=== PATIENT | female | born 1965 | race Caucasian/White ===

== ENCOUNTER 2016-10-06 19:19 | Emergency (ER) | payer OTHER ==
[2016-10-06 20:13] VITALS: BP 135/79
[2016-10-06] MEDS ORDERED: Naproxen TAB* 250 MG PO ONE (20:26)
--- NOTE | 2016-10-06 20:39 | UC ---
Hand/Wrist HPI - HPI Summary HPI Summary: Pain in base of R thumb with digit stuck in bent position since this morning; was able to force it straight and now feels a lump at the volar base of thumb. Pain into hand and wrist. - History Of Current Complaint Chief Complaint: UCUpperExtremity Stated Complaint: THUMB & WRIST PAIN Time Seen by Provider: 10/06/16 20:20 Hx Obtained From: Patient Hx Last Menstrual Period: 10/04/15 ?: No Onset/Duration: Sudden Onset, Lasting Hours Severity Initially: Moderate Severity Currently: Mild Character Of Pain: Aching, Stiffness Aggravating Factor(s): Movement Alleviating: Nothing Associated Signs And Symptoms: Positive: Negative - Allergies/Home Medications Allergies/Adverse Reactions: Allergies Allergy/AdvReac Type Severity Reaction Status Date / Time Nitroglycerin Allergy Unknown See Comment Verified 11/28/15 12:48 Liraglutide [From Victoza] Allergy See Comment Verified 10/06/16 20:04 Phenol [From Victoza] Allergy See Comment Verified 10/06/16 20:04 Propylene Glycol Allergy See Comment Verified 10/06/16 20:04 [From Victoza] PMH/Surg Hx/FS Hx/Imm Hx Endocrine History Of: Reports: Diabetes - type 2 Denies: Thyroid Disease Cardiovascular History Of: Reports: Cardiac Disorders - MITRAL VALVE REPAIRED, Hypertension - Pulmonary HTN Denies: Congestive Heart Failure Respiratory History Of: Reports: Asthma, Pneumonia, Pulmonary Embolism Denies: COPD GI/ History Of: Reports: Gastrointestinal Bleed, Kidney Stones, Renal Disease - PRIOR HX OF KIDNEY STONES Denies: Ulcer Neurological History Of: Reports: Migraine Psychological History Of: Reports: Depression - Surgical History Surgical History: Yes Surgery Procedure, Year, and Place: 2009 Mitral Valve Repair. April 2009 Appendectomy. Collapsed lung - coma 16 days, tracheotomy. TUBAL - Family History Known Family History: Positive: Hypertension, Diabetes - Social History Lives: With Family Alcohol Use: None Substance Use Type: None Smoking Status (MU): Former Smoker When Did the Patient Quit Smoking/Using Tobacco: 8 YRS - Immunization History Most Recent Influenza Vaccination: FALL 2015 Most Recent Tetanus Shot: sep 2012 Most Recent Pneumonia Vaccination: 2008 Review of Systems Constitutional: Negative Skin: Negative Eyes: Negative ENT: Negative Respiratory: Negative Cardiovascular: Negative Gastrointestinal: Negative Genitourinary: Negative Motor: Negative Neurovascular: Negative Musculoskeletal: Arthralgia Neurological: Negative Psychological: Negative All Other Systems Reviewed And Are Negative: Yes Physical Exam Triage Information Reviewed: Yes Appearance: Pain Distress - holding painful hand with other hand, Obese Vital Signs: Initial Vital Signs Temp 99.3 F 10/06/16 20:06 Pulse 87 10/06/16 20:06 Resp 18 10/06/16 20:06 BP 135/79 10/06/16 20:06 Pulse Ox 96 10/06/16 20:06 Vital Signs Reviewed: Yes Eye Exam: Normal Eyes: Positive: Conjunctiva Clear ENT Exam: Normal ENT: Positive: Normal ENT inspection, Hearing grossly normal, Pharynx normal, TMs normal Dental Exam: Normal Neck exam: Normal Neck: Positive: Supple, Nontender, No Lymphadenopathy Respiratory Exam: Normal Respiratory: Positive: Chest non-tender, Lungs clear, Normal breath sounds, No respiratory distress, No accessory muscle use Cardiovascular Exam: Normal Cardiovascular: Positive: RRR, No Murmur Musculoskeletal: Positive: Strength Limited @ - R pincer grasp, ROM Limited @ - R thumb, pt unwilling to bend. Palpable lump at base of volar thumb. Finkelstien maneuver negative Neurological Exam: Normal Neurological: Positive: Alert Psychological Exam: Normal Skin Exam: Normal Hand/Wrist Course/Dx - Differential Dx/Diagnosis Provider Diagnoses: R 1st finger trigger finger Discharge - Discharge Plan Condition: Stable Disposition: HOME Prescriptions: Naproxen Sodium 500 mg PO BID #20 tab Patient Education Materials: Trigger Finger (ED) Referrals: Arturo Baker MD [Primary Care Provider] - Additional Instructions: Wear the splint and use the naproxen until your symptoms improve. If you have persistent or recurrent symptoms, please see Dr. Baker for follow-up and to discuss seeing an orthopedist.
== END 2016-10-06 21:00 | disposition home or self-care (01) ==
LOC: UCEAST 19:19
DX: M65.311 Trigger thumb, right thumb (principal); Z88.8 Allergy status to other drugs, medicaments and biological substances; Z87.891 Personal history of nicotine dependence
CPT/HCPCS: 99213; A9270-GY; G0463

== ENCOUNTER 2017-12-30 20:45 | Emergency (ER) | payer OTHER ==
[2017-12-30] MEDS ORDERED: Al Hydrox/Mg Hydrox/Simet LIQ* 30 ML UDC PO ONE (21:12)
[2017-12-30] MEDS ORDERED: Lidocaine 2% VISCOUS* 15 ML UDC PO ONE (21:12)
[2017-12-30] MEDS ORDERED: Albuterol/Ipratropium NEB.SOL* Albuterol 2.5 MG/Ipratropium 0.5 MG 3 ML INH ONE (21:13)
[2017-12-30] MEDS ORDERED: Dexamethasone IV* 4 MG/ML 1 ML (4 MG) IV SLOW PU ONE (21:14)
[2017-12-30 21:30] LABS: Hematocrit 38 % (35-47); Hemoglobin 12.8 g/dl (12.0-16.0); Mean Corpuscular HGB Conc 34 g/dl (31-36); Mean Corpuscular Hemoglobin 29 pg (27-31); Mean Corpuscular Volume 86 fL (80-97); Mean Platelet Volume 8.7 um3 (7.4-10.4); Platelet Count 241 10^3/ul (150-450); Red Blood Count 4.41 10^6/ul (4.0-5.4); Red Cell Distribution Width 14 % (10.5-15); White Blood Count 11.4 10^3/ul (3.5-10.8)
[2017-12-30 21:40] LABS: EGFR Non-African American 93.2 (>60)
[2017-12-30 22:56] VITALS: BP 127/54
--- NOTE | 2018-01-10 14:48 | ED ---
Janna Neville Elizabeth, scribed for Tanner Salazar MD on 12/30/17 at 2109 . Shortness of Breath - HPI Summary HPI Summary: This patient is a 52 year old F presenting to [facility] with a chief complaint of shortness of breath that began at 20:00 tonight. Symptoms aggravated by nothing. Symptoms alleviated by nothing. Patient reports nasal congestion, sore throat, hoarse voice that began last night. Patient notes that it felt like her throat was closing in. Patient use oxygen and CPAP at home, and previously had a hole in her heart repaired. She notes take mucinex and her inhaler earlier with no improvement to her symptoms. - History of Current Complaint Chief Complaint: EDShortnessOfBreath Time Seen by Provider: 12/30/17 21:00 Hx Obtained From: Patient, Family/Anesthesiology Crna Onset/Duration: Lasting Hours, Still Present Current Severity: Mild Associated Signs & Symptoms: Nasal Congestion - Allergy/Home Medications Allergies/Adverse Reactions: Allergies Allergy/AdvReac Type Severity Reaction Status Date / Time liraglutide [From Victoza] Allergy Unknown Verified 12/30/17 21:33 Reaction Details nitroglycerin Allergy Unknown Verified 12/30/17 21:32 Reaction Details polyethylene glycol 3350 Allergy Unknown Verified 12/30/17 21:34 [From Miralax] Reaction Details Home Medications: Home Medications Naproxen Sodium [Naproxen Sodium 500 MG TAB] 500 mg PO BID PRN 12/30/17 [ History Confirmed 12/30/17] PMH/Surg Hx/FS Hx/Imm Hx Endocrine/Hematology History: Reports: Hx Diabetes - type 2 Denies: Hx Systemic Lupus Erythematosus, Hx Thyroid Disease Cardiovascular History: Reports: Hx Congenital Heart Disease, Hx Hypertension - Pulmonary HTN Denies: Hx Congestive Heart Failure Respiratory History: Reports: Hx Asthma, Hx Pneumonia, Hx Pulmonary Embolism, Other Respiratory Problems/Disorders - SPOT ON RIGHT LUNG PER PT Denies: Hx Chronic Obstructive Pulmonary Disease (COPD) GI History: Reports: Hx Gastrointestinal Bleed Denies: Hx Ulcer History: Reports: Hx Kidney Stones, Hx Renal Disease - PRIOR HX OF KIDNEY STONES, Other Problems/Disorders - overactive bladder Musculoskeletal History: Reports: Hx Back Problems Denies: Hx Rheumatoid Arthritis Sensory History: Reports: Hx Vision Problem Opthamlomology History: Reports: Hx Vision Problem Neurological History: Reports: Hx Developmental Delay, Hx Headaches, Hx Migraine Psychiatric History: Reports: Hx Depression Denies: Hx Substance Abuse - Cancer History Hx Chemotherapy: No - Surgical History Surgery Procedure, Year, and Place: 2009 Mitral Valve Repair. April 2009 Appendectomy. Collapsed lung - coma 16 days, tracheotomy. TUBAL Hx Anesthesia Reactions: No Infectious Disease History: No Infectious Disease History: Denies: Hx Clostridium Difficile, Hx Hepatitis, Hx Human Immunodeficiency Virus (HIV), Hx of Known/Suspected MRSA, Hx Shingles, Hx Tuberculosis, Hx Known/ Suspected VRE, Hx Known/Suspected VRSA, History Other Infectious Disease, Traveled Outside the [place] in Last 30 Days - Family History Known Family History: Positive: Hypertension, Diabetes - Social History Alcohol Use: None Substance Use Type: Reports: None Smoking Status (MU): Former Smoker Review of Systems Negative: Fever, Chills Negative: Erythema ENT: Other - nasal congestion, hoarse voice. Positive: Sore Throat Negative: Chest Pain Positive: Shortness Of Breath Negative: Abdominal Pain, Vomiting, Nausea Negative: dysuria, hematuria Negative: Myalgia, Edema Negative: Rash Neurological: Other - NEGATIVE DIZZINESS All Other Systems Reviewed And Are Negative: Yes Physical Exam - Summary Physical Exam Summary: Constitutional: Well-developed, Well-nourished, Alert. (-) Distressed Skin: Warm, Dry HENT: Normocephalic; Atraumatic. Voice mildly hoarse. Eyes: Conjunctiva normal Neck: Musculoskeletal ROM normal neck. (-) JVD, (-) Stridor, (-) Tracheal deviation Cardio: Rhythm regular, rate normal, Heart sounds normal; Intact distal pulses; The pedal pulses are 2+ and symmetric. Radial pulses are 2+ and symmetric. (-) Murmur Pulmonary/Chest wall: Effort normal. (-) Respiratory distress, (-) Wheezes, (-) Rales, (-) Stridor Abd: Soft, (-) Tenderness, (-) Distension, (-) Guarding, (-) Rebound Musculoskeletal: (-) Edema Lymph: (-) Cervical adenopathy Neuro: Alert, Oriented x3 Psych: Mood and affect Normal Triage Information Reviewed: Yes Vital Signs On Initial Exam: Initial Vitals Temp Pulse Resp BP Pulse Ox 98.3 F 87 20 128/75 97 12/30/17 20:52 12/30/17 20:52 12/30/17 20:52 12/30/17 20:52 12/30/17 20:52 Vital Signs Reviewed: Yes Diagnostics - Vital Signs Vital Signs Temp Pulse Resp BP Pulse Ox 12/30/17 20:52 98.3 F 87 20 128/75 97 - Laboratory Result Diagrams: 12/30/17 21:07 12/30/17 21:07 Lab Statement: Any lab studies that have been ordered have been reviewed, and results considered in the medical decision making process. - EKG 21:26 Cardiac Rate: NL - at 83 BPM EKG Rhythm: Sinus Rhythm EKG Interpretation: no delta, no STEMI Re-Evaluation - Re-Evaluation first re-eval Re-Evaluation Time: 21:12 Change: Improved Comment: Patient expectorated a large green sputum Second re-eval Change: Improved Comment: Patient reports feeling better. Course/Dx - Course Course Of Treatment: This patient is a 52 year old F presenting to [facility] with a chief complaint of shortness of breath that began at 20:00 tonight. Symptoms aggravated by nothing. Symptoms alleviated by nothing. Patient reports nasal congestion, sore throat, hoarse voice that began last night. Patient notes that it felt like her throat was closing in. Patient use oxygen and CPAP at home, and previously had a hole in her heart repaired. She notes take mucinex and her inhaler earlier with no improvement to her symptoms. Physical Exam reveals mildly hoarse voice. An EKG reveals NSR at 83 BPM, no delta, no STEMI. Test results with no significant abnormalities. In the ED course the patient was given Maalox Plus, Albuterol/Ipratropium, IV Dexamethasone, and lidocaine. Upon second re-evaluation, patient reported feeling much better. Diagnosis is upper respiratory infection and mucus plug. Patient will be discharged with prescription for albuterol and doxycycline and follow up from primary care physician in 2-3 days. The patient is agreeable with this plan. - Diagnoses Provider Diagnoses: Upper respiratory infection, Mucus plugging of bronchi Discharge - Sign-Out/Discharge Documenting (check all that apply): Discharge - Discharge Plan Condition: Stable Disposition: HOME Prescriptions: Albuterol 2.5MG/3ML (0.083%)* [Ventolin 2.5 MG/3 ML NEB.NALDO*] 2.5 mg INH Q6H PRN #40 neb.[email or web address] PRN Reason: Cough DOXYcycline CAP(*) [DOXYcycline 100MG CAP(*)] 100 mg PO BID #14 cap Patient Education Materials: Upper Respiratory Infection (ED) Referrals: Arturo Baker MD [Primary Care Provider] - 2 Days (Follow up with primary care provider in 2-3 days.) Additional Instructions: Return to emergency department with changing or worsening symptoms. Follow up with primary care provider in 2-3 days. The documentation as recorded by the Janna roberson Elizabeth accurately reflects the service I personally performed and the decisions made by , Tanner Salazar MD.
== END 2017-12-30 22:56 | disposition home or self-care (01) ==
LOC: ED 20:45
DX: J02.9 Acute pharyngitis, unspecified (principal); Z87.891 Personal history of nicotine dependence; J06.9 Acute upper respiratory infection, unspecified; R09.81 Nasal congestion
CPT/HCPCS: 36415; 80053; 84484; 85027; 93005; 94640; 96374; 99283; A9270-GY; J1100

== ENCOUNTER 2018-09-18 14:51 | Observation (INO) | payer OTHER ==
[2018-09-18] MEDS ORDERED: NS 0.9% 1000 ML** 1,000 ML IV ONE ×2 (15:57→17:25)
[2018-09-18] MEDS ORDERED: Ketorolac INJ* 30 MG/ML 1 ML VIAL IV PUSH ONE (15:59)
[2018-09-18] MEDS ORDERED: Ondansetron INJ* 2 MG/ML VIAL IV ONE (16:00)
--- NOTE | 2018-09-18 16:14 | ED ---
Abdominal Pain/Female - HPI Summary HPI Summary: This pt is a 53 y/o female presenting to [facility] c/o abd pain since this morning. Pt states she woke up this morning with sharp abd pain. She rates her pain 10/ 10 in severity and it is now diffuse. Her pain is aggravated with going to the bathroom. Denies nausea, vomiting, diarrhea, fever, chills, constipation, chest pain. Denies hx of constipation or bowel obstruction. PMHx: pulmonary hypertension, DM, heart problems, CHF (from heart murmur), kidney stones, appendectomy. Denies cholecystectomy. Pt is on diuretics. 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 Her last heart US was a while ago and she does not know her EF. Allergic to nitroglycerin, Miralax. Not allergic to IV contrast. - History of Current Complaint Chief Complaint: EDAbdPain Stated Complaint: PAIN IN STOMACH, NAUSEOUS Time Seen by Provider: 09/18/18 16:00 Hx Obtained From: Patient Hx Last Menstrual Period: 10/04/15 Onset/Duration: Lasting Hours, Still Present Timing: Hours Severity Currently: Severe Pain Intensity: 9 Pain Scale Used: 0-10 Numeric Location: Diffuse Radiates: No Character: Sharp Aggravating Factor(s): Nothing Alleviating Factor(s): Nothing Associated Signs and Symptoms: Negative: Fever, Chest Pain, Constipation, Nausea , Vomiting, Diarrhea Allergies/Adverse Reactions: Allergies Allergy/AdvReac Type Severity Reaction Status Date / Time liraglutide [From Victoza] Allergy Unknown Verified 09/18/18 14:53 Reaction Details nitroglycerin Allergy Unknown Verified 09/18/18 14:53 Reaction Details polyethylene glycol 3350 Allergy Unknown Verified 09/18/18 14:53 [From Miralax] Reaction Details PMH/Surg Hx/FS Hx/Imm Hx Endocrine/Hematology History: Reports: Hx Diabetes - type 2 Denies: Hx Systemic Lupus Erythematosus, Hx Thyroid Disease Cardiovascular History: Reports: Hx Congenital Heart Disease, Hx Congestive Heart Failure, Hx Hypertension - Pulmonary HTN Respiratory History: Reports: Hx Asthma, Hx Pneumonia, Hx Pulmonary Embolism, Other Respiratory Problems/Disorders - SPOT ON RIGHT LUNG PER PT Denies: Hx Chronic Obstructive Pulmonary Disease (COPD) GI History: Reports: Hx Gastrointestinal Bleed Denies: Hx Ulcer History: Reports: Hx Kidney Stones, Hx Renal Disease - PRIOR HX OF KIDNEY STONES, Other Problems/Disorders - overactive bladder Musculoskeletal History: Reports: Hx Back Problems Denies: Hx Rheumatoid Arthritis Sensory History: Reports: Hx Vision Problem Opthamlomology History: Reports: Hx Vision Problem Neurological History: Reports: Hx Developmental Delay, Hx Headaches, Hx Migraine Psychiatric History: Reports: Hx Depression Denies: Hx Substance Abuse - Cancer History Hx Chemotherapy: No - Surgical History Surgery Procedure, Year, and Place: 2009 Mitral Valve Repair. April 2009 Appendectomy. Collapsed lung - coma 16 days, tracheotomy. TUBAL Hx Anesthesia Reactions: No Infectious Disease History: No Infectious Disease History: Denies: Hx Clostridium Difficile, Hx Hepatitis, Hx Human Immunodeficiency Virus (HIV), Hx of Known/Suspected MRSA, Hx Shingles, Hx Tuberculosis, Hx Known/ Suspected VRE, Hx Known/Suspected VRSA, History Other Infectious Disease, Traveled Outside the [place] in Last 30 Days - Family History Known Family History: Positive: Hypertension, Diabetes - Social History Alcohol Use: None Substance Use Type: Reports: None Smoking Status (MU): Former Smoker Review of Systems Negative: Fever, Chills Negative: Chest Pain Positive: Abdominal Pain. Negative: Vomiting, Diarrhea, Nausea, Other - constipation All Other Systems Reviewed And Are Negative: Yes Physical Exam - Summary Physical Exam Summary: GENERAL: Patient is a well developed and nourished female who is lying comfortable in the stretcher. Patient is not in any acute respiratory distress. HEAD AND FACE: Normocephalic EYES: PERRLA, EOMI x 2. EARS: Hearing grossly intact. MOUTH: Oropharynx within normal limits. NECK: Supple, trachea is midline, no adenopathy, no JVD, no carotid bruit. CHEST: Symmetric, no tenderness at palpation LUNGS: Clear to auscultation bilaterally. No wheezing or crackles. CVS: Regular rate and rhythm, S1 and S2 present, no murmurs or gallops appreciated. ABDOMEN: Soft, diffusely tender to palpation. No rebound or guarding. Bowel sounds are normal. No abdominal abnormal pulsations. EXTREMITIES: Full ROM in all major joints, no edema, no cyanosis or clubbing. NEURO: Alert and oriented x 3. No acute neurological deficits. Speech is normal and follows commands. SKIN: Dry and warm Triage Information Reviewed: Yes Vital Signs On Initial Exam: Initial Vitals Temp Pulse Resp BP Pulse Ox 98.0 F 111 20 145/90 97 09/18/18 14:54 09/18/18 14:54 09/18/18 14:54 09/18/18 14:54 09/18/18 14:54 Vital Signs Reviewed: Yes Diagnostics - Vital Signs Vital Signs Temp Pulse Resp BP Pulse Ox 09/18/18 14:54 98.0 F 111 20 145/90 97 - Laboratory Result Diagrams: 09/18/18 16:10 09/18/18 16:09 Lab Statement: Any lab studies that have been ordered have been reviewed, and results considered in the medical decision making process. Abdominal Pain Fem Course/Dx - Course Course Of Treatment: Pt is a 53 y/o female who presents with abd pain since this morning upon waking up, described as sharp and diffuse. Pt does have significant leukocytosis with WBC count of 18.6, elevated lactic acid of 2.8, CRP of 37. Pt was given prophylactic antibiotics for intraabdominal etiology. CT of abdomen/pelvis was ordered and is pending at this time. Pt will be signed out to Dr. Arriaga at shift change, pending CT and disposition. - Diagnoses Provider Diagnoses: Abdominal pain Discharge - Sign-Out/Discharge Documenting (check all that apply): Sign-Out Patient Signing out patient TO: Lencho Arriaga - CT A/P - Discharge Plan Condition: Stable Referrals: Arturo Baker MD [Primary Care Provider] - - Billing Disposition and Condition Condition: STABLE - Attestation Statements Document Initiated by Keanu: Yes Documenting Scribe: Marci Mcghee Provider For Whom Scribe is Documenting (Include Credential): Scooby Ruiz MD Scribe Attestation: Marci Neville, scribed for Scooby Ruiz MD on 09/18/18 at 1854. Scribe Documentation Reviewed: Yes Provider Attestation: The documentation as recorded by the Marci roberson accurately reflects the service I personally performed and the decisions made by me, Scooby Ruiz MD Status of Scribe Document: Viewed
[2018-09-18 16:26] LABS: ABS Basophils 0.1 10^3/ul (0-0.2); ABS Eosinophils 0 10^3/ul (0-0.6); ABS Lymphocytes 1.2 10^3/ul (1.0-4.8); ABS Monocytes 0.8 10^3/ul (0-0.8); ABS Neutrophils 16.5 10^3/ul (1.5-7.7); ABS Nucleated RBC 0 10^3/ul; Eosinophil % 0.1 %; Hematocrit 43 % (35-47); Hemoglobin 14.3 g/dl (12.0-16.0); Lymphocyte % 6.4 %; Mean Corpuscular HGB Conc 34 g/dl (31-36); Mean Corpuscular Hemoglobin 29 pg (27-31); Mean Corpuscular Volume 86 fL (80-97); Mean Platelet Volume 8.7 fL (7.4-10.4); Nucleated Red Blood Cells % 0; Platelet Count 249 10^3/ul (150-450); Red Blood Count 4.99 10^6/ul (4.00-5.40); Red Cell Distribution Width 13 % (10.5-15); White Blood Count 18.6 10^3/ul (3.5-10.8)
[2018-09-18 16:55] LABS: Albumin 4.6 g/dL (3.2-5.2); Albumin/Globulin Ratio 1.8 (1-3); BUN/Creatinine Ratio 16.7 (8-20); C Reactive Protein 37.07 mg/L (<8.01); Calcium 9.4 mg/dL (8.6-10.3); EGFR African American 127.5 (>60); EGFR Non-African American 105.4 (>60); Globulin 2.5 g/dL (2-4); Potassium 3.9 mmol/L (3.5-5.0); Total Bilirubin 0.6 mg/dL (0.2-1.0); Total Protein 7.1 g/dL (6.4-8.9)
[2018-09-18 17:14] LABS: Urine Appearance Clear; Urine Bacteria 1+ (Absent); Urine Bilirubin Negative (Negative); Urine Blood 1+ (Negative); Urine Color Yellow; Urine Glucose Negative (Negative); Urine Ketones 1+ (Negative); Urine Nitrite Negative (Negative); Urine Protein Negative (Negative); Urine Red Blood Cell 1+(3-5/hpf) (Absent); Urine Specific Gravity 1.023 (1.010-1.030); Urine Squamous Epithelial Cell Present (Absent); Urine Urobilinogen Negative (Negative); Urine White Blood Cell Trace(0-5/hpf) (Absent)
[2018-09-18] MEDS ORDERED: Ciprofloxacin 400MG IVPREMIX(* 400 MG/200 ML BAG IVPB ONE (17:41)
[2018-09-18] MEDS ORDERED: metroNIDAZOLE IV 500 MG/100ML* 500 MG/100 ML BAG IVPB ONE (17:41)
[2018-09-18] MEDS ORDERED: Iodixanol* (CONTRAST) 320 MG/ML 100 ML SDV IV ONE (18:50)
--- NOTE | 2018-09-18 19:54 | ED ---
Progress - Progress Note Progress Note: RECEIVING SIGN-OUT FROM DR. RUIZ AT SHIFT CHANGE PENDING A/P CT. 1952: ED provider at bedside Pt is a 53 y/o F presenting to ED with c/o abd pain onset this AM. - Results/Orders Results/Orders: A/P CT results as read by radiologist: IMPRESSION: 1. Cholelithiasis without change from the comparison study. 2. No acute intra-abdominal findings. ED provider has reviewed this report. Gallbladder U/S results as read by radiologist: IMPRESSION: Gallstones without any sonographic evidence of acute cholecystitis. ED provider has reviewed this report. Re-Evaluation - Re-Evaluation 1 Re-Evaluation Time: 23:21 Change: Unchanged Comment: Discussing U/S results with pt. Pt still having abd pain, still tachy. Course/Dx - Course Course Of Treatment: RECEIVING SIGN-OUT FROM DR. RUIZ AT SHIFT CHANGE PENDING A /P CT. A/P CT shows "1. Cholelithiasis without change from the comparison study. 2. No acute intra-abdominal findings." Gallbladder U/S shows no evidence of acute cholecystitis. Upon re-eval, pt is still having abd pain and tachycardia. Consulted with Dr. Potts, hospitalist, who will admit pt. - Diagnoses Provider Diagnoses: Abdominal pain, Tachycardia, Leukocytosis - Provider Notifications Discussed Care Of Patient With: Ankita Potts - hospitalist Time Discussed With Above Provider: 23:29 Instructed by Provider To: Admit As Inpatient Discharge - Sign-Out/Discharge Documenting (check all that apply): Patient Departure - ADMIT, Receiving Sign- Out Receiving patient FROM: Scooby Ruiz - PENDING CT - Discharge Plan Condition: Stable Disposition: ADMITTED TO [facility] Referrals: Arturo Baker MD [Primary Care Provider] - - Billing Disposition and Condition Condition: STABLE Disposition: Admitted to [facility] - Attestation Statements Document Initiated by Scribe: Yes Documenting Scribe: Diaz Abbott Provider For Whom Scribe is Documenting (Include Credential): Dr. Lencho Arriaga MD Scribe Attestation: Diaz Neville, kirbyibed for Dr. Lencho Arriaga MD on 09/19/18 at 0113. Scribe Documentation Reviewed: Yes Provider Attestation: The documentation as recorded by the kirbyibe, Diaz Abbott accurately reflects the service I personally performed and the decisions made by me, Dr. Lencho Arriaga MD Status of Scribe Document: Viewed
[2018-09-18] MEDS ORDERED: Morphine 4 MG/ML VIAL (1 ml) 4 MG/ML VIAL IV ONE (19:57)
[2018-09-19] MEDS ORDERED: Dextrose 50% Syringe 50 ML* 25 GM/50 ML SYRINGE IV PUSH PRN (00:37)
[2018-09-19] MEDS ORDERED: Ondansetron INJ* 2 MG/ML VIAL IV PRN (00:39)
[2018-09-19] MEDS ORDERED: Al Hydrox/Mg Hydrox/Simet LIQ* 30 ML UDC PO PRN (00:39)
[2018-09-19] MEDS ORDERED: Albuterol/Ipratropium RESP(NF) MDI (Combivent Respimat) INH PRN (00:41)
[2018-09-19] MEDS ORDERED: Albuterol HFA INHALER* 8 gm MDI INH PRN (00:41)
[2018-09-19] MEDS ORDERED: Albuterol 2.5 MG/3 ML NEB.SOL* (0.083%) INH PRN (00:41)
[2018-09-19] MEDS ORDERED: Metoprolol Tartrate TAB* 25 MG PO SCH (01:00)
[2018-09-19] MEDS: Metoprolol Tartrate TAB* 25 MG PO SCH ×2 (01:22→09:29)
[2018-09-19] MEDS: NS 0.9% 1000 ML** 1,000 ML IV SCH ×2 (01:59→19:47)
[2018-09-19] MEDS: Insulin GLARGINE(*) 1 UNITS UNIT SUBCUT SCH ×2 (02:01→21:18)
[2018-09-19] MEDS: traMADol TAB* 50 MG PO PRN ×3 (02:15→19:34)
--- NOTE | 2018-09-19 04:57 | HP ---
CC: Arturo Baker MD * HISTORY AND PHYSICAL: DATE OF ADMISSION: 09/19/18 TIME OF EVALUATION: 29. PRIMARY CARE PHYSICIAN: Arturo Baker MD CHIEF COMPLAINT: Abdominal pain. HISTORY OF PRESENT ILLNESS: This is a 53-year-old female with past medical history of pulmonary hypertension, on oxygen, who presents to the emergency room with acute onset of abdominal pain. The patient states she woke up yesterday morning with abdominal pain in the epigastric region initially, now is diffusely in the entire abdomen. She states she does get loose stools quite often, she thinks ever since she had her appendectomy, she is unable to tolerate certain foods. She had a large steak last night. Shortly afterward she had several episodes of diarrhea, she took Pepto which is not unusual for her and when she woke up, she had this abdominal pain and has had several more episodes of non-bloody diarrhea. She has been nauseated but no vomiting, she has been having chills at home. Her who had the same food last night did not get sick, [facility] The patient had a workup done, there was concern for persistent tachycardia. In the setting of abdominal pain, they recommended admission. She said she has not taken her nighttime medications, which include metoprolol which is why she thinks her heart rate is elevated, she has no chest pain, no shortness of breath. She wears chronic oxygen and a CPAP at night. No recent antibiotic use. Otherwise , review of systems is negative. In the emergency room, the patient had labs, imaging. She was given 2 L of fluids, 4 mg of Zofran, 10 mg of morphine, Cipro , Flagyl, Toradol, and referred to the hospitalist service for further evaluation. PAST MEDICAL HISTORY: 1. History of obstructive sleep apnea, on CPAP. 2. Diabetes, on insulin. 3. History of CHF. 4. Pulmonary hypertension, on 2 L chronically. 5. Hypertension. 6. Emphysema. MEDICATIONS: 1. Metoprolol 37.5 mg p.o. b.i.d. 2. Albuterol inhaler 2 puffs every 4 hours as needed. 3. Spironolactone 40 mg p.o. daily. 4. Oxybutynin 5 mg p.o. b.i.d. 5. Naproxen 500 mg p.o. b.i.d. as needed. 6. Humalog sliding scale a.c. 7. Lasix 80 mg p.o. daily. 8. Aspirin 81 mg daily. 9. Combivent q.4 hours as needed. 10. Albuterol inhaling nebulizer q.6 hours as needed. 11. Lantus 12 units in the evening. 12. Metformin 500 mg p.o. b.i.d. 13. Cialis 2 tabs p.o. daily. ALLERGIES: VICTOZA, NITROGLYCERIN, MIRALAX. FAMILY HISTORY: Parents are alive and healthy. SOCIAL HISTORY: The patient lives at home with her , who is her healthcare proxy. She quit smoking 10 years ago, no alcohol or illicit drug use. She has been independent of her ADLs. Code status is full code. REVIEW OF SYSTEMS: A 14-point review of systems as mentioned in the HPI, otherwise negative. PHYSICAL EXAMINATION GENERAL: No acute distress, resting comfortably. VITAL SIGNS: Temp 98, pulse rate 115, respiratory rate is 20, oxygen saturation is 93% on 2 L, blood pressure 130/77. HEENT: Head: Normocephalic. Pupils equal and reactive, anicteric. Oropharynx : Mucous membranes dry. NECK: Supple. No adenopathy. RESPIRATORY: Diminished breath sounds. No wheezes, rhonchi, or rales. CARDIAC: Regular rate and rhythm. Soft systolic murmur heard throughout. ABDOMEN: Hypoactive bowel sounds, morbidly obese, soft, nondistended. Some diffuse tenderness, no rebound or guarding. EXTREMITIES: Trace pretibial edema. NEUROLOGIC: Alert and oriented x3. No gross focal neurologic deficits. DIAGNOSTIC STUDIES/LAB DATA: White count 18.6, hemoglobin 14.3, hematocrit 43 , platelets 249. Sodium 136, potassium 3.9, chloride 101, bicarb 25, BUN 10, creatinine 0.6, glucose 225. Lactic acid 2.8, repeat 1.4. CRP is 37. Urinalysis shows +1 blood, +1 ketones. Radiographic data: Abdomen and pelvis CT: Cholelithiasis without change from comparison study, no acute intraabdominal findings. Gallbladder ultrasound: Gallstones without sonographic evidence of acute cholecystitis. ASSESSMENT AND PLAN: This is a 53-year-old morbidly obese with past medical history of pulmonary hypertension, presents to the emergency room with acute onset of abdominal pain in the setting of diarrhea and nausea. Abdominal pain. Assessment: It is unclear the etiology of the abdominal pain, could be biliary colic, could be gastroenteritis in the setting of her diarrhea and nausea. She does have an elevated white count but her lactate has normalized with IV fluids. Her abdominal exam is relatively benign but she is morbidly obese, do not think this is Clostridium difficile, she has not been on antibiotics. Plan: We will give her gentle fluids in the setting of her congestive heart failure. We will hold off on further antibiotics at this time since her CAT scan was unremarkable and repeat labs in the morning to reassess. We will also get a stool lactoferrin. CHRONIC MEDICAL PROBLEMS: We will resume her home medications and give her a dose of metoprolol this evening to help with better heart rate control. We will hold her Lasix in the morning. Continue her spironolactone in the morning , we recommend reassessing if she can have her Lasix back or not. FEN. Clear liquid diet, gentle IV fluids. DVT prophylaxis. The patient scores moderate risk, placed on heparin subcu t.i.d. Code status. Full code. PATIENT TIME: Greater than 35 minutes was spent obtaining history and physical , more than half the time spent in direct patient conversation. [id number]/[facility] #: [id number] ITA
[2018-09-19] MEDS: Heparin VIAL(*) 5000 UNITS/ML VIAL (FIVE THOUSAND) SUBCUT SCH ×3 (05:59→21:18)
[2018-09-19 06:51] LABS: ABS Basophils 0 10^3/ul (0-0.2); ABS Eosinophils 0.1 10^3/ul (0-0.6); ABS Lymphocytes 2.8 10^3/ul (1.0-4.8); ABS Monocytes 0.9 10^3/ul (0-0.8); ABS Neutrophils 7.5 10^3/ul (1.5-7.7); ABS Nucleated RBC 0 10^3/ul; Eosinophil % 0.6 %; Hematocrit 37 % (35-47); Hemoglobin 12.4 g/dl (12.0-16.0); Lymphocyte % 24.6 %; Mean Corpuscular HGB Conc 34 g/dl (31-36); Mean Corpuscular Hemoglobin 29 pg (27-31); Mean Corpuscular Volume 86 fL (80-97); Mean Platelet Volume 8.8 fL (7.4-10.4); Nucleated Red Blood Cells % 0.1; Platelet Count 224 10^3/ul (150-450); Red Blood Count 4.32 10^6/ul (4.00-5.40); Red Cell Distribution Width 14 % (10.5-15); White Blood Count 11.2 10^3/ul (3.5-10.8)
[2018-09-19 07:07] LABS: BUN/Creatinine Ratio 20.8 (8-20); Calcium 8.4 mg/dL (8.6-10.3); EGFR Non-African American 136.4 (>60); Potassium 3.7 mmol/L (3.5-5.0)
[2018-09-19] MEDS ORDERED: Insulin LISPRO* 1 UNITS UNIT SUBCUT SCH (07:30)
[2018-09-19] MEDS: Oxybutynin TAB* 5 MG PO SCH ×2 (09:29→21:17)
[2018-09-19] MEDS: Spironolactone TAB* 25 MG PO SCH (09:29)
[2018-09-19] MEDS: Aspirin EC TAB* 81 MG TAB.EC PO SCH (09:30)
[2018-09-19] MEDS: TADALAFIL 20 MG PO SCH ×2 (09:33→16:32)
[2018-09-19] MEDS: Insulin LISPRO* 1 UNITS UNIT SUBCUT SCH ×2 (12:37→16:32)
--- NOTE | 2018-09-19 16:16 | PN ---
Subjective Date of Service: 09/19/18 Interval History: Patient seen and examined, states abdominal pain improved, about 5/10 today and no diarrhea; feels "sore" but better. Denies fevers or chills, no chest pain, no SOB. Appears comfortable. Objective Active Medications: Al Hydrox/Mg Hydrox/Simethicone (Maalox Plus*) 30 ml PO Q6H PRN PRN Reason: INDIGESTION Albuterol (Ventolin 2.5 Mg/3 Ml Neb.Mary*) 2.5 mg INH Q6H PRN PRN Reason: COUGH Albuterol (Ventolin Hfa Inhaler*) 2 puff INH Q4H PRN PRN Reason: SOB/WHEEZING Albuterol/Ipratropium (Combivent Respimat(Nf)) 1 puff INH Q4HR PRN; Protocol PRN Reason: SOB/WHEEZING Aspirin (Aspirin Ec Tab*) 81 mg PO DAILY [facility] Last Admin: 09/19/18 09:30 Dose: 81 mg Dextrose (D50w Syringe 50 Ml*) 12.5 gm IV PUSH .FOR FS < 60 - SS PRN PRN Reason: FS < 60 Heparin Sodium (Porcine) (Heparin Vial(*)) 5,000 units SUBCUT Q8HR [facility] Last Admin: 09/19/18 12:38 Dose: 5,000 units Sodium Chloride (Ns 0.9% 1000 Ml*) 1,000 mls @ 75 mls/hr IV PER RATE [facility] Last Admin: 09/19/18 01:59 Dose: 75 mls/hr Insulin Glargine (Lantus(*)) 12 units SUBCUT BEDTIME [facility] Last Admin: 09/19/18 02:01 Dose: 12 units Insulin Human Lispro (Humalog*) 0 units SUBCUT AC [facility]; Protocol Last Admin: 09/19/18 12:37 Dose: 1 unit Metoprolol Tartrate (Lopressor Tab*) 37.5 mg PO DAILY [facility] Last Admin: 09/19/18 09:29 Dose: 37.5 mg Ondansetron HCl (Zofran Inj*) 4 mg IV Q4H PRN PRN Reason: NAUSEA/VOMITING Oxybutynin Chloride (Ditropan Tab*) 5 mg PO BID [facility] Last Admin: 09/19/18 09:29 Dose: 5 mg Spironolactone (Aldactone Tab*) 37.5 mg PO DAILY [facility] Last Admin: 09/19/18 09:29 Dose: 37.5 mg Tadalafil (Adcirca (Nf)) 40 mg PO DAILY [facility] Last Admin: 09/19/18 09:33 Dose: Not Given Tramadol HCl (Ultram*) 50 mg PO Q8H PRN PRN Reason: PAIN Last Admin: 09/19/18 10:18 Dose: 50 mg Vital Signs - 8 hr 09/19/18 09/19/18 09/19/18 10:18 11:02 14:32 Temperature 98.1 F Pulse Rate 88 Respiratory 16 18 16 Rate Blood Pressure 116/65 (mmHg) O2 Sat by Pulse 92 Oximetry 09/19/18 15:14 Temperature 98.1 F Pulse Rate 88 Respiratory 18 Rate Blood Pressure 127/58 (mmHg) O2 Sat by Pulse 97 Oximetry Oxygen Devices in Use Now: Nasal Cannula Appearance: alert, NAD Eyes: No Scleral Icterus Ears/Nose/Mouth/Throat: Mucous Membranes Moist, - - poor dentition Neck: NL Appearance and Movements; NL JVP, Trachea Midline Respiratory: Symmetrical Chest Expansion and Respiratory Effort, Clear to Auscultation Cardiovascular: NL Sounds; No Murmurs; No JVD, RRR, No Edema Abdominal: - - no distension, obese, mildly tender bilateral lower quads, diffuse in nature Extremities: No Edema, No Clubbing, Cyanosis Skin: No Rash or Ulcers, No Nodules or Sclerosis Neurological: Alert and Oriented x 3, NL Sensation, NL Muscle Strength and Tone Result Diagrams: 09/19/18 06:02 09/19/18 06:06 Diagnostic Imaging: Patient Name: SHELDON RICHARD Medical Record#: [id number] Ordering Physician: Lencho Arriaga MD Acct.#: [id number] : 1965 Age: 53 Sex: F Location: EMERGENCY DEPARTMENT Exam Date: 09/18/181954 ADM Status: REG ER Order Information: US GALL BLADDER Accession Number: [id number] CPT: 85935 EXAM: US Abdomen Limited, Right Upper Quadrant EXAM DATE/TIME: 09/18/2018 9:53 PM CLINICAL HISTORY: 53 years old, female; Pain; Abdominal pain; Additional info: Ruq pain TECHNIQUE: Real-time ultrasound of the abdomen with image documentation. Examination was focused on the right upper quadrant. COMPARISON: A/P W CT ABD/PEL W 09/18/2018 6:32 PM FINDINGS: Liver: Normal. No masses. Gallbladder: Cholelithiasis; measuring up to 2.1 x 1.2 cm. No pericholecystic fluid. No gallbladder wall thickening. Common bile duct: Intrahepatic common bile duct measures 6.4 cm and extrahepatic common bile duct measures 4.9 cm. Pancreas: Visualized pancreas is unremarkable. Right kidney: The right kidney is unremarkable measuring 2.5 cm. IMPRESSION: Gallstones without any sonographic evidence of acute cholecystitis. Assess/Plan/Problems-Billing Assessment: This is a 53 year old female with history of HF, COPD, HTN, DMII, SVEN, admitted for intractable abdominal pain. - Patient Problems (1) Abdominal pain Code(s): R10.9 - UNSPECIFIED ABDOMINAL PAIN SNOMED Code(s): 82642722 Comment: - With leukocytosis and elevated lactic acid, s/p fluid resuscitation - Had similar episode in 2016 with negative work up - No acute sigrid on imaging about, CT negative - Has IBS and lactose intolerance at baseline with chronic intermittent diarrhea - Events seem to be precipitated by heavy meal on New Years - Advance for FLD and monitor stools - Lactoferrin pending, stool culture ordered, viral gastroenteritis is in the differential (2) CHF (congestive heart failure) Code(s): I50.9 - HEART FAILURE, UNSPECIFIED SNOMED Code(s): 87299733 Comment: - Not in exacerbation, continue home meds (3) Emphysema of lung Code(s): J43.9 - EMPHYSEMA, UNSPECIFIED SNOMED Code(s): 13839084 Comment: - Not in exacerbation, continue inhalers and O2 (4) Hypertension Code(s): I10 - ESSENTIAL (PRIMARY) HYPERTENSION SNOMED Code(s): 06806842 Comment: - Stable, continue BB (5) Insulin dependent diabetes mellitus Code(s): E11.9 - TYPE 2 DIABETES MELLITUS WITHOUT COMPLICATIONS; Z79.4 - FDC (CURRENT) USE OF INSULIN SNOMED Code(s): 87994281 Comment: - BG stable, continue lantus with lispro SS coverage as needed, cons carb diet and sugars ACHS (6) SVEN (obstructive sleep apnea) Code(s): G47.33 - OBSTRUCTIVE SLEEP APNEA (ADULT) (PEDIATRIC) SNOMED Code(s): 96603697 Comment: - continue home CPAP (7) Pulmonary hypertension Code(s): I27.2 - OTHER SECONDARY PULMONARY HYPERTENSION * DO NOT USE * SNOMED Code(s): 52709843 Comment: - Stable, continue supplemental O2 and tadalafil (8) DVT prophylaxis Current Visit: No Status: Acute Code(s): DEC8381 - SNOMED Code(s): 898060363 Comment: early ambulation and SCDs Status and Disposition: Inpatient, likely DC home tomorrow if symptoms resolve.
[2018-09-20] MEDS: traMADol TAB* 50 MG PO PRN ×2 (05:25→15:01)
[2018-09-20] MEDS: Heparin VIAL(*) 5000 UNITS/ML VIAL (FIVE THOUSAND) SUBCUT SCH ×2 (05:26→12:05)
[2018-09-20] MEDS: Spironolactone TAB* 25 MG PO SCH (08:32)
[2018-09-20] MEDS: Oxybutynin TAB* 5 MG PO SCH (08:34)
[2018-09-20] MEDS: Metoprolol Tartrate TAB* 25 MG PO SCH (08:34)
[2018-09-20] MEDS: Aspirin EC TAB* 81 MG TAB.EC PO SCH (08:35)
[2018-09-20] MEDS: TADALAFIL 20 MG PO SCH (08:35)
[2018-09-20] MEDS: Insulin LISPRO* 1 UNITS UNIT SUBCUT SCH ×2 (08:35→12:05)
[2018-09-20] MEDS: NS 0.9% 1000 ML** 1,000 ML IV SCH (08:38)
[2018-09-20 13:07] VITALS: BP 135/68
--- NOTE | 2018-09-26 19:59 | DS ---
CC: Dr. Baker * DISCHARGE SUMMARY: DATE OF ADMISSION: 09/19/18 DATE OF DISCHARGE: 09/20/18 PRIMARY CARE PROVIDER: Dr. Arturo Baker. ATTENDING FOR THIS ADMISSION: Dr. Ankita Potts. MY ATTENDING FOR DAY OF DISCHARGE: Dr. Promise Correia.* (DICTATED BY CHAMP OLVERA NP) HOSPITAL COURSE: Please refer to Dr. Potts's admission H and P from 09/19/18, but in short, this is a 53-year-old female with intractable abdominal pain, who presented to the emergency department for evaluation. She was found to have some leukocytosis. She was also having episodes of nonbloody diarrhea and nausea, but no vomiting. The patient felt as if her heart was beating faster than normal and overall feeling of general malaise. The patient was admitted for her abdominal pain. Her CT scan in the ED did not show any acute cholecystitis. She did have some stones in the gallbladder, but again not an acute sigrid. Her CAT scan again otherwise unremarkable. The patient did report history of IBS in the past and she has had issues with dairy and other foods. She also related to me that she had a very large meal on Flinjae , which included steak, which sometimes she has difficulty digesting. In either case, the patient's symptoms rapidly resolved overnight. She received a bowel regimen. Her diarrhea did stop. Her laboratories were trending towards normal. She does have diabetes at baseline. Her sugars were well controlled and by the next morning after having fluids and some bowel meds and bowel rest, we advanced her diet form clears to soft GI diet, which she tolerated without having any further abdominal pain or diarrhea. DISCHARGE DIAGNOSES: 1. Abdominal pain, etiology unclear, viral gastroenteritis versus exacerbation of her irritable bowel syndrome. 2. History of congestive heart failure, not in exacerbation. 3. History of emphysema, on supplemental oxygen, not in exacerbation. 4. History of hypertension. 5. History of diabetes mellitus. 6. History of obstructive sleep apnea, on CPAP. 7. History of pulmonary hypertension, stable. DISCHARGE MEDICATIONS: Home medications include: 1. Metoprolol tartrate 37.5 mg p.o. daily. 2. Albuterol inhaler 2 puffs q.4 hours as needed. 3. Aldactone 40 mg p.o. daily. 4. Ditropan 5 mg p.o. b.i.d. 5. Naproxen sodium 500 mg p.o. b.i.d. p.r.n. 6. Humalog sliding scale. 7. Furosemide 80 mg p.o. daily. 8. Doxycycline 100 mg p.o. b.i.d. 9. Aspirin 81 mg daily. 10. Combivent Respimat 1 aerosolized inhalation q.4 hours as needed. 11. Ventolin 2.5 mg nebulized q.6 hours as needed. 12. Lantus 12 units in the evening. 13. Metformin 500 mg p.o. b.i.d. 14. Tadalafil 2 tabs p.o. daily. New medications: 1. Zofran orally disintegrating tablets 4 mg p.o. q.12 hours as needed for 4 days. 2. Bentyl 10 mg p.o. before meals and p.r.n. for abdominal pain and cramping, also for 4 days. REVIEW OF SYSTEMS: On the day of discharge, the patient denies any fever, fatigue, or chills. No headache, no dizziness. No nausea or vomiting. Mild intermittent crampy abdominal pain, improved. No musculoskeletal pain and no further constitutional complaints. PHYSICAL EXAMINATION: Reveals an older than stated age female. Vital Signs: Blood pressure 135/68, heart rate 80, respiratory rate 18, O2 saturation 93% on 2 L nasal cannula with a temperature of 98.2. HEENT: The patient is atraumatic , normocephalic. PERRLA with nonicteric sclerae. Oral mucosa is moist. Tongue is midline. Dentition is poor. Neck is supple, nontender. No JVD noted. No thyromegaly appreciated. Cardiovascular: S1, S2 present. No murmurs, gallops, or rubs noted. Rate and rhythm are regular. Abdomen is soft , nontender, nondistended, moderately obese. Positive bowel sounds in all 4 quadrants. No organomegaly noted. was deferred. Musculoskeletal: There is no clubbing, no cyanosis, and no edema. She has +2 distal pulses palpable, full range of motion, steady gait. Gross motor and sensation are intact. Neurologic: Grossly intact with no focal deficits. Psychiatric: Cooperative and appropriate. DIAGNOSTIC STUDIES/LAB DATA: WBCs 11.2, down from 18.6 at admission; RBCs 4.32 ; hemoglobin 12.4; hematocrit 37; platelets 224. Sodium 139, potassium 3.7, chloride 107, CO2 of 27, BUN 10, creatinine 0.48, GFR is 136.4, glucose ranging from 118 to 150. Lactic acid at admission was 2.8, repeat lactic was 1.4. Calcium 8.4. Bilirubin 0.60, AST 12, ALT 17, alk phos 75. CRP mildly elevated at 37.7. Total protein 7.1, albumin 4.6, globulin 2.5, lipase 17. Urinalysis showed 1+ blood and ketones and some squamous epithelial cells, 1+ bacteria, but no further findings. Imaging: CAT scan as noted above. DISPOSITION: The patient was discharged to home in stable condition. All questions were answered. The patient stated her understanding of her discharge instructions and followups. DIET: Reinforced dietary changes with the patient. She does already have a dairy intolerance. We also advised her that red meat was also a problem for her. She was interested in nutritional counseling, so we referred her to the [facility] to help manage her nutritional needs, dietary restrictions, diabetic diet. Also, the patient is obese at 282 pounds with a BMI of 53.4. She would certainly benefit from weight loss as well. MEDICATIONS: As noted above. ACTIVITY: Progress as tolerated. FOLLOWUPS: The patient was instructed to follow up with her primary care provider, Dr. Baker and [facility]. TIME SPENT: Thirty five minutes interfacing with the patient and staff regarding discharge plan of care. CHAMP OLVERA NP [id number]/[facility] #: [id number] ITA
== END 2018-09-20 15:10 | disposition home or self-care (01) ==
LOC: ED 14:51 → MED 09-19 00:39
PROVIDERS: ADMIT Pediatrics; ATTEND Internal Medicine
DX: K52.9 Noninfective gastroenteritis and colitis, unspecified (principal); R11.2 Nausea with vomiting, unspecified; K80.20 Calculus of gallbladder without cholecystitis without obstruction; I50.9 Heart failure, unspecified; J43.9 Emphysema, unspecified; I10 Essential (primary) hypertension; E11.9 Type 2 diabetes mellitus without complications; G47.33 Obstructive sleep apnea (adult) (pediatric); I27.0 Primary pulmonary hypertension; R00.0 Tachycardia, unspecified; Z79.4 Long term (current) use of insulin; Z79.82 Long term (current) use of aspirin; D72.829 Elevated white blood cell count, unspecified
CPT/HCPCS: 36415; 74177; 76705; 80048; 80053; 81003; 81015; 83605; 83630; 83690; 85025; 86140; 87045; 87046; 87077; 87086; 87899; 94660; 96361; 96365; 96372; 96375; 96376; 99285; A9270-GY; G0378; J0744; J1644; J1885; J2270; J2405; J3490; Q9967

== ENCOUNTER 2018-10-31 08:49 | Emergency (ER) | payer OTHER ==
[2018-10-31 09:42] VITALS: BP 131/71
--- NOTE | 2018-10-31 11:03 | UC ---
Lower Extremity/Ankle HPI - HPI Summary HPI Summary: 53-year-old female comes in with a chief complaint of right great toe pain and infection. Week ago she had an ingrown toenail she removed part of the toenail and now has pus drainage. Pain is worse with any kind of pressure on the area. She has been putting Neosporin on it. No fevers or chills feels well otherwise. She is a diabetic. - History of Current Complaint Chief Complaint: UCLowerExtremity Stated Complaint: RED SWOLLEN TOE Time Seen by Provider: 10/31/18 10:51 Hx Last Menstrual Period: menapause Pain Intensity: 8 - Allergies/Home Medications Allergies/Adverse Reactions: Allergies Allergy/AdvReac Type Severity Reaction Status Date / Time liraglutide [From Victoza] Allergy Unknown Verified 09/18/18 14:53 Reaction Details nitroglycerin Allergy Unknown Verified 09/18/18 14:53 Reaction Details polyethylene glycol 3350 Allergy Unknown Verified 10/31/18 09:35 [From Miralax] Reaction Details Home Medications: Home Medications Tadalafil [Cialis] 40 mg PO DAILY 10/31/18 [History Confirmed 10/31/18] PMH/Surg Hx/FS Hx/Imm Hx Previously Healthy: Yes Endocrine History: Diabetes, Dyslipidemia Cardiovascular History: Hypertension, Congestive Heart Failure Respiratory History: Asthma - Surgical History Surgical History: Yes Surgery Procedure, Year, and Place: 2009 Mitral Valve Repair. April 2009 Appendectomy. Collapsed lung - coma 16 days, tracheotomy. TUBAL - Family History Known Family History: Positive: Hypertension, Diabetes - Social History Alcohol Use: None Substance Use Type: None Smoking Status (MU): Former Smoker When Did the Patient Quit Smoking/Using Tobacco: 8 YRS - Immunization History Most Recent Influenza Vaccination: FALL 2015 Most Recent Tetanus Shot: sep 2012 Most Recent Pneumonia Vaccination: 2008 Review of Systems All Other Systems Reviewed And Are Negative: Yes Constitutional: Positive: Negative Skin: Positive: Other - SEE HPI ENT: Positive: Negative Respiratory: Positive: Negative Cardiovascular: Positive: Negative Gastrointestinal: Positive: Negative Motor: Positive: Negative Neurovascular: Positive: Negative Musculoskeletal: Positive: Negative Neurological: Positive: Negative Psychological: Positive: Negative Is Patient Immunocompromised?: No Physical Exam Triage Information Reviewed: Yes Appearance: Well-Appearing, No Pain Distress, Well-Nourished Vital Signs: Initial Vital Signs Temp 97.7 F 10/31/18 09:36 Pulse 73 10/31/18 09:36 Resp 18 10/31/18 09:36 BP 131/71 10/31/18 09:36 Pulse Ox 96 10/31/18 09:36 Vital Signs Reviewed: Yes Eye Exam: Normal Eyes: Positive: Conjunctiva Clear Neck exam: Normal Neck: Positive: Supple Respiratory: Positive: No respiratory distress Musculoskeletal Exam: Normal Musculoskeletal: Positive: Strength Intact, ROM Intact Neurological Exam: Normal Neurological: Positive: Alert, Muscle Tone Normal Psychological Exam: Normal Psychological: Positive: Normal Response To Family, Age Appropriate Behavior Skin: Positive: Other - Right great toe has about one fourth of the lateral aspect of the toenail removed. There is some pus drainage. I took a sample of that for culture. There is localized erythema there is no streaking. Toe is full range of motion normal capillary refill. Lower Extremity Course/Dx - Course Course Of Treatment: To start Augmentin and then topical mupirocin. The plan will be to follow up with podiatry. Reevaluate sooner if any spread of infection or worse. - Differential Dx/Diagnosis Provider Diagnosis: Paronychia of great toe, right Discharge - Sign-Out/Discharge Documenting (check all that apply): Patient Departure All imaging exams completed and their final reports reviewed: No Studies - Discharge Plan Condition: Stable Disposition: HOME Prescriptions: Amoxicillin/Clavulanate TAB* [Augmentin TAB 875*] 875 mg PO BID #20 tab Mupirocin 1 applic TOPICAL BID #22 gm Patient Education Materials: Paronychia (ED) Referrals: Arturo Baker MD [Primary Care Provider] - Katelynn Franco DPM [Doctor of Podiatric Medicine] - Additional Instructions: FOLLOW UP WITH YOUR PRIMARY CARE DOCTOR OR PODIATRY. GET RECHECKED FOR ANY WORSENING OF YOUR CONDITION OR QUESTIONS OR CONCERNS. - Billing Disposition and Condition Condition: STABLE Disposition: Home
--- NOTE | 2018-11-02 07:20 | UC ---
- Progress Note Progress Note: Culture from toe: S. Aureus; MRSA negative. On Augmentin, Bactroban. No change in treatment. Kwadwo Harkins MD Course/Dx - Diagnoses Provider Diagnoses: Paronychia of great toe, right Discharge - Sign-Out/Discharge Documenting (check all that apply): Post-Discharge Follow Up All imaging exams completed and their final reports reviewed: No Studies - Discharge Plan Condition: Stable Disposition: HOME Prescriptions: Amoxicillin/Clavulanate TAB* [Augmentin TAB 875*] 875 mg PO BID #20 tab Mupirocin 1 applic TOPICAL BID #22 gm Patient Education Materials: Paronychia (ED) Referrals: Arturo Baker MD [Primary Care Provider] - Katelynn Franco DPM [Doctor of Podiatric Medicine] - Additional Instructions: FOLLOW UP WITH YOUR PRIMARY CARE DOCTOR OR PODIATRY. GET RECHECKED FOR ANY WORSENING OF YOUR CONDITION OR QUESTIONS OR CONCERNS. - Billing Disposition and Condition Condition: STABLE Disposition: Home
--- NOTE | 2018-11-02 15:12 | UC ---
- Progress Note Progress Note: Final culture with resistance to penicillin, but sensitive to sulbactam - therefore I suspect augmentin should treat this. Please call pt and if she is improving - no change. If not improving will switch her to doxycycline. Course/Dx - Diagnoses Provider Diagnoses: Paronychia of great toe, right Discharge - Sign-Out/Discharge Documenting (check all that apply): Post-Discharge Follow Up All imaging exams completed and their final reports reviewed: No Studies - Discharge Plan Condition: Stable Disposition: HOME Prescriptions: Amoxicillin/Clavulanate TAB* [Augmentin TAB 875*] 875 mg PO BID #20 tab Mupirocin 1 applic TOPICAL BID #22 gm Patient Education Materials: Paronychia (ED) Referrals: Arturo Baker MD [Primary Care Provider] - Katelynn Franco DPM [Doctor of Podiatric Medicine] - Additional Instructions: FOLLOW UP WITH YOUR PRIMARY CARE DOCTOR OR PODIATRY. GET RECHECKED FOR ANY WORSENING OF YOUR CONDITION OR QUESTIONS OR CONCERNS. - Billing Disposition and Condition Condition: STABLE Disposition: Home
== END 2018-10-31 11:14 | disposition home or self-care (01) ==
LOC: UCEAST 08:49
DX: L03.031 Cellulitis of right toe (principal); Z87.891 Personal history of nicotine dependence; I11.0 Hypertensive heart disease with heart failure; I50.9 Heart failure, unspecified; J45.909 Unspecified asthma, uncomplicated; E11.9 Type 2 diabetes mellitus without complications; Z88.8 Allergy status to other drugs, medicaments and biological substances
CPT/HCPCS: 87070; 87077; 87186; 87205; 87640; 87641; 99212; G0463

== ENCOUNTER 2019-02-19 18:52 | Emergency (ER) | payer OTHER ==
[2019-02-19] MEDS ORDERED: NS 0.9% 1000 ML** 2,000 ML IV ONE (19:24)
[2019-02-19] MEDS ORDERED: Insulin REGULAR(*) 1 UNITS UNIT IV PUSH ONE ×2 (19:24→21:46)
[2019-02-19 19:34] LABS: Urine Appearance Clear; Urine Bilirubin Negative (Negative); Urine Blood Negative (Negative); Urine Color Straw; Urine Glucose 3+(>=500 mg/dL) (Negative); Urine Ketones 1+ (Negative); Urine Nitrite Negative (Negative); Urine Protein Negative (Negative); Urine Urobilinogen Negative (Negative)
[2019-02-19 19:40] LABS: ABS Eosinophils 0.1 10^3/ul (0-0.6); ABS Lymphocytes 2.9 10^3/ul (1.0-4.8); ABS Monocytes 0.8 10^3/ul (0-0.8); ABS Neutrophils 5.4 10^3/ul (1.5-7.7); Eosinophil % 1.1 %; Hematocrit 44 % (35-47); Hemoglobin 15.1 g/dL (12.0-16.0); Lymphocyte % 31.1 %; Mean Corpuscular HGB Conc 34 g/dL (31-36); Mean Corpuscular Hemoglobin 30 pg (27-31); Mean Corpuscular Volume 86 fL (80-97); Nucleated Red Blood Cells % 0.1; Platelet Count 226 10^3/uL (150-450); Red Blood Count 5.13 10^6 /uL (3.70-4.87); Red Cell Distribution Width 13 % (10.5-15); White Blood Count 9.2 10^3/uL (3.5-10.8)
[2019-02-19 19:50] LABS: Activated Partial Thrombo Time 28.5 seconds (26.0-38.0); INR 0.89 (0.82-1.09)
[2019-02-19 19:57] LABS: Albumin 4.2 g/dL (3.2-5.2); Albumin/Globulin Ratio 1.6 (1-3); BUN/Creatinine Ratio 15.5 (8-20); C Reactive Protein 10.12 mg/L (<8.01); Calcium 10.2 mg/dL (8.6-10.3); EGFR Non-African American 86.8 (>60); Globulin 2.6 g/dL (2-4); Magnesium 1.4 mg/dL (1.9-2.7); Potassium 3.5 mmol/L (3.5-5.0); Total Bilirubin 0.5 mg/dL (0.2-1.0); Total Protein 6.8 g/dL (6.4-8.9)
--- NOTE | 2019-02-19 20:19 | ED ---
HPI Diabetic - HPI Summary HPI Summary: A 53 y/o female presents to [facility] with a chief complaint of high blood glucose since yesterday. The patient reports that yesterday her blood glucose was over 500 then dropped to around 300 but then today it went back up. She complains of blurry vision and cotton mouth. She usually takes Lantus 12 at night and then during the day uses a sliding scale. She has been taking the same dose of insulin for 5-6 years. Her last humalog was at 12:00 today with lunch. She reports that when her blood glucose is over 150 she takes 2 shots for each 50 she is over. She takes Aspirin. - History Of Current Complaint Chief Complaint: EDDiabeticProb Time Seen by Provider: 02/19/19 19:23 Hx Obtained From: Patient, Family/Time Buyer Hx Last Menstrual Period: menapause Onset/Duration: Sudden Onset, Lasting Days, Still Present Timing: Days Severity Initially: Mild Severity Currently: Mild Character: Alert Aggravating: Nothing Alleviating: Nothing Associated Signs & Symptoms: Negative - fever - Allergies/Home Medications Allergies/Adverse Reactions: Allergies Allergy/AdvReac Type Severity Reaction Status Date / Time liraglutide [From Victoza] Allergy Unknown Verified 09/18/18 14:53 Reaction Details nitroglycerin Allergy Unknown Verified 09/18/18 14:53 Reaction Details polyethylene glycol 3350 Allergy Unknown Verified 10/31/18 09:35 [From Miralax] Reaction Details Home Medications: Home Medications raNITIdine HCl [Ranitidine HCl] 150 mg PO BID 02/19/19 [History Confirmed ] PMH/Surg Hx/FS Hx/Imm Hx Endocrine/Hematology History: Reports: Hx Diabetes - type 2 Denies: Hx Systemic Lupus Erythematosus, Hx Thyroid Disease Cardiovascular History: Reports: Hx Congenital Heart Disease, Hx Congestive Heart Failure, Hx Hypertension - Pulmonary HTN Respiratory History: Reports: Hx Asthma, Hx Pneumonia, Hx Pulmonary Embolism, Other Respiratory Problems/Disorders - SPOT ON RIGHT LUNG PER PT, pulmonary HTN , emphysea Denies: Hx Chronic Obstructive Pulmonary Disease (COPD) GI History: Reports: Hx Gastroesophageal Reflux Disease, Hx Gastrointestinal Bleed, Other GI Disorders - Appi Denies: Hx Ulcer History: Reports: Hx Kidney Stones, Hx Renal Disease - PRIOR HX OF KIDNEY STONES, Other Problems/Disorders - overactive bladder Musculoskeletal History: Reports: Hx Arthritis, Hx Back Problems Denies: Hx Rheumatoid Arthritis Sensory History: Reports: Hx Contacts or Glasses, Hx Vision Problem Denies: Hx Hearing Aid Opthamlomology History: Reports: Hx Contacts or Glasses, Hx Vision Problem Neurological History: Reports: Hx Developmental Delay, Hx Headaches, Hx Migraine Psychiatric History: Reports: Hx Depression Denies: Hx Substance Abuse - Cancer History Cancer Type, Location and Year: denies Hx Chemotherapy: No - Surgical History Surgery Procedure, Year, and Place: 2009 Mitral Valve Repair. April 2009 Appendectomy. Collapsed lung - coma 16 days, tracheotomy. TUBAL Hx Anesthesia Reactions: No Infectious Disease History: No Infectious Disease History: Denies: Hx Clostridium Difficile, Hx Hepatitis, Hx Human Immunodeficiency Virus (HIV), Hx of Known/Suspected MRSA, Hx Shingles, Hx Tuberculosis, Hx Known/ Suspected VRE, Hx Known/Suspected VRSA, History Other Infectious Disease, Traveled Outside the [place] in Last 30 Days - Family History Known Family History: Positive: Hypertension, Diabetes - Social History Alcohol Use: None Substance Use Type: Reports: None Smoking Status (MU): Former Smoker Review of Systems Positive: Other - positive: high blood glucose. Negative: Fever Positive: Blurred Vision All Other Systems Reviewed And Are Negative: Yes Physical Exam - Summary Physical Exam Summary: VITAL SIGNS: Reviewed. GENERAL: Patient is a morbidly obese FEMALE who is lying comfortable in the stretcher. Patient is not in any acute respiratory distress. HEAD AND FACE: No signs of trauma. No ecchymosis, hematomas or skull depressions. No sinus tenderness. EYES: PERRLA, EOMI x 2, No injected conjunctiva, no nystagmus. EARS: Hearing grossly intact. Ear canals and tympanic membranes are within normal limits. MOUTH: Oropharynx within normal limits. NECK: Supple, trachea is midline, no adenopathy, no JVD, no carotid bruit, no c- spine tenderness, neck with full ROM CHEST: Symmetric, no tenderness at palpation LUNGS: Clear to auscultation bilaterally. No wheezing or crackles. CVS: Regular rate and rhythm, S1 and S2 present, no murmurs or gallops appreciated. ABDOMEN: Soft, non-tender. No signs of distention. No rebound no guarding, and no masses palpated. Bowel sounds are normal. EXTREMITIES: FROM in all major joints, no edema, no cyanosis or clubbing. NEURO: Alert and oriented x 3. No acute neurological deficits. Speech is normal and follows commands. SKIN: Dry and warm Triage Information Reviewed: Yes Vital Signs On Initial Exam: Initial Vitals Temp Pulse Resp BP Pulse Ox 97.3 F 117 18 140/101 95 02/19/19 18:54 02/19/19 18:54 02/19/19 18:54 02/19/19 18:54 02/19/19 18:54 Vital Signs Reviewed: Yes Diagnostics - Vital Signs Vital Signs Temp Pulse Resp BP Pulse Ox 02/19/19 18:54 97.3 F 117 18 140/101 95 - Laboratory Lab Results: Lab Results 02/19/19 02/19/19 02/19/19 Range/Units 19:19 19:26 19:27 WBC (3.5-10.8) 10^3/uL RBC (3.70-4.87) 10^6 /uL Hgb (12.0-16.0) g/dL Hct (35-47) % MCV (80-97) fL MCH (27-31) pg MCHC (31-36) g/dL RDW (10.5-15) % Plt Count (150-450) 10^3/uL MPV (7.4-10.4) fL Neut % (Auto) % Lymph % (Auto) % [place] % (Auto) % Eos % (Auto) % Baso % (Auto) % Absolute Neuts (auto) (1.5-7.7) 10^3/ul Absolute Lymphs (auto) (1.0-4.8) 10^3/ul Absolute Monos (auto) (0-0.8) 10^3/ul Absolute Eos (auto) (0-0.6) 10^3/ul Absolute Basos (auto) (0-0.2) 10^3/ul Absolute Nucleated RBC 10^3/ul Nucleated RBC % INR (Anticoag Therapy) (0.82-1.09) APTT (26.0-38.0) seconds VBG pH (7.32-7.43) VBG pCO2 (41-51) mmHg VBG pO2 (35-45) mmHg VBG HCO3 (24-28) mmol/L VBG O2 Saturation (70-80) % VBG Base Excess (0.0-4.0) mmol/L Sodium 134 L (135-145) mmol/L Potassium 3.5 (3.5-5.0) mmol/L Chloride 93 L (101-111) mmol/L Carbon Dioxide 28 (22-32) mmol/L Anion Gap 13 H (2-11) mmol/L BUN 11 (6-24) mg/dL Creatinine 0.71 (0.51-0.95) mg/dL Est GFR ( Amer) 105.0 (>60) Est GFR (Non-Af Amer) 86.8 (>60) BUN/Creatinine Ratio 15.5 (8-20) Glucose 604 H* (70-100) mg/dL POC Glucose (mg/dL) > 444 H* (70-100) mg/dL Glucose Meter Confirm 604 H* (70-100) mg/dL Calcium 10.2 (8.6-10.3) mg/dL Magnesium 1.4 L (1.9-2.7) mg/dL Total Bilirubin 0.50 (0.2-1.0) mg/dL AST 19 (13-39) U/L ALT 17 (7-52) U/L Alkaline Phosphatase 108 H (34-104) U/L Troponin I 0.00 (<0.04) ng/mL C-Reactive Protein 10.12 H (<8.01) mg/L Total Protein 6.8 (6.4-8.9) g/dL Albumin 4.2 (3.2-5.2) g/dL Globulin 2.6 (2-4) g/dL Albumin/Globulin Ratio 1.6 (1-3) Urine Color Straw Urine Appearance Clear Urine pH 6.0 (5-9) Ur Specific [place] 1.030 (1.010-1.030) Urine Protein Negative (Negative) Urine Ketones 1+ A (Negative) Urine Blood Negative (Negative) Urine Nitrate Negative (Negative) Urine Bilirubin Negative (Negative) Urine Urobilinogen Negative (Negative) Ur Leukocyte Esterase Negative (Negative) Urine Glucose 3+(>=500 mg/dl) A (Negative) 02/19/19 02/19/19 02/19/19 Range/Units 19:28 19:28 19:28 WBC 9.2 (3.5-10.8) 10^3/uL RBC 5.13 H (3.70-4.87) 10^6 /uL Hgb 15.1 (12.0-16.0) g/dL Hct 44 (35-47) % MCV 86 (80-97) fL MCH 30 (27-31) pg MCHC 34 (31-36) g/dL RDW 13 (10.5-15) % Plt Count 226 (150-450) 10^3/uL MPV 10.0 (7.4-10.4) fL Neut % (Auto) 58.7 % Lymph % (Auto) 31.1 % [place] % (Auto) 8.8 % Eos % (Auto) 1.1 % Baso % (Auto) 0.3 % Absolute Neuts (auto) 5.4 (1.5-7.7) 10^3/ul Absolute Lymphs (auto) 2.9 (1.0-4.8) 10^3/ul Absolute Monos (auto) 0.8 (0-0.8) 10^3/ul Absolute Eos (auto) 0.1 (0-0.6) 10^3/ul Absolute Basos (auto) 0.0 (0-0.2) 10^3/ul Absolute Nucleated RBC 0.0 10^3/ul Nucleated RBC % 0.1 INR (Anticoag Therapy) 0.89 (0.82-1.09) APTT 28.5 (26.0-38.0) seconds VBG pH 7.51 H (7.32-7.43) VBG pCO2 41 (41-51) mmHg VBG pO2 < 38.0 (35-45) mmHg VBG HCO3 30.8 H (24-28) mmol/L VBG O2 Saturation 63.1 L (70-80) % VBG Base Excess 8.8 H (0.0-4.0) mmol/L Sodium (135-145) mmol/L Potassium (3.5-5.0) mmol/L Chloride (101-111) mmol/L Carbon Dioxide (22-32) mmol/L Anion Gap (2-11) mmol/L BUN (6-24) mg/dL Creatinine (0.51-0.95) mg/dL Est GFR ( Amer) (>60) Est GFR (Non-Af Amer) (>60) BUN/Creatinine Ratio (8-20) Glucose (70-100) mg/dL POC Glucose (mg/dL) (70-100) mg/dL Glucose Meter Confirm (70-100) mg/dL Calcium (8.6-10.3) mg/dL Magnesium (1.9-2.7) mg/dL Total Bilirubin (0.2-1.0) mg/dL AST (13-39) U/L ALT (7-52) U/L Alkaline Phosphatase (34-104) U/L Troponin I (<0.04) ng/mL C-Reactive Protein (<8.01) mg/L Total Protein (6.4-8.9) g/dL Albumin (3.2-5.2) g/dL Globulin (2-4) g/dL Albumin/Globulin Ratio (1-3) Urine Color Urine Appearance Urine pH (5-9) Ur Specific [place] (1.010-1.030) Urine Protein (Negative) Urine Ketones (Negative) Urine Blood (Negative) Urine Nitrate (Negative) Urine Bilirubin (Negative) Urine Urobilinogen (Negative) Ur Leukocyte Esterase (Negative) Urine Glucose (Negative) Result Diagrams: 02/19/19 19:28 02/19/19 19:27 Lab Statement: Any lab studies that have been ordered have been reviewed, and results considered in the medical decision making process. - Radiology CXR Radiology Interpretation Completed By: ED Physician Summary of Radiographic Findings: No acute process. Pending official imaging report. - EKG 19:36 Cardiac Rate: Tachycardia - 104 bpm EKG Rhythm: Sinus Tachycardia Summary of EKG Findings: Sinus tachycardia at 104 bpm, normal axis, RBBB. Re-Evaluation - Re-Evaluation First Eval Re-Evaluation Time: 23:42 Change: Improved Comment: Pt is ready for discharge Diabetic Course/Dx - Course Course Of Treatment: A 53 y/o female presents to [facility] with a chief complaint of high blood glucose since yesterday. The patient reports that yesterday her blood glucose was over 500 then dropped to around 300 but then today it went back up. The physical exam revealed that the patient was morbidly obese. EKG showed Sinus tachycardia at 104 bpm, normal axis, RBBB. Bloodwork, chemistries and urines obtained. Glucose 604 at 19:27, 414 at 21:45, 366 at 23:26. In the ED course the patient was given insulin IV, Potassium chloride PO and sodium chloride IV. CXR showed no acute process. The patient will be discharged and follow up with her PCP tomorrow to adjust sliding scale for insulin and insulin doses. The patient is agreeable with this plan. - Diagnoses Provider Diagnoses: Hyperglycemia Discharge - Sign-Out/Discharge Documenting (check all that apply): Patient Departure - DC Patient Received Moderate/Deep Sedation with Procedure: No - Discharge Plan Condition: Stable Disposition: HOME Referrals: Arturo Baker MD [Primary Care Provider] - 1 Day Additional Instructions: Follow up with your PCP tomorrow to adjust sliding scale for insulin and insulin doses. PLEASE RETURN TO THE ED IMMEDIATELY FOR WORSENING OR CONCERNING SYMPTOMS. - Billing Disposition and Condition Condition: STABLE Disposition: Home - Attestation Statements Document Initiated by Keanu: Yes Documenting Scribe: Lawrence Nava Provider For Whom Keanu is Documenting (Include Credential): Celso Talamantes MD Scribe Attestation: Lawrence Neville scribed for Celso Talamantes MD on 02/20/19 at 2051. Scribe Documentation Reviewed: Yes Provider Attestation: The documentation as recorded by the Lawrence roberson accurately reflects the service I personally performed and the decisions made by Christine haddad MD Status of Scribe Document: Viewed
[2019-02-19] MEDS ORDERED: Potassium Chlor TAB* 20 MEQ TAB.ER PO ONE (21:23)
[2019-02-19] MEDS ORDERED: Insulin REGULAR(*) 1 UNITS UNIT SUBCUT ONE (23:38)
[2019-02-20 00:04] VITALS: BP 118/69
== END 2019-02-20 00:03 | disposition home or self-care (01) ==
LOC: ED 18:52
DX: E11.65 Type 2 diabetes mellitus with hyperglycemia (principal); I50.9 Heart failure, unspecified; I11.0 Hypertensive heart disease with heart failure; Z79.4 Long term (current) use of insulin; Z87.891 Personal history of nicotine dependence
CPT/HCPCS: 36415; 71045; 80053; 81003; 82803; 82947; 83735; 84484; 85025; 85610; 85730; 86140; 93005; 96361; 96372; 96374; 96375; 99283; A9270-GY

== ENCOUNTER 2019-10-13 17:18 | Emergency (ER) | payer OTHER ==
[2019-10-13 17:56] VITALS: BP 145/75
--- NOTE | 2019-10-13 19:01 | UC ---
Upper Extremity HPI - HPI Summary HPI Summary: 54-year-old woman comes in with a chief complaint of right elbow forearm wrist and hand pain. 3 days ago she tripped and fell on some ice and primarily struck her right elbow. She's having a lot of pain in the right elbow it goes all the way into the right forearm wrist and hand. It hurts more when she moves it or touches it. She is tried ibuprofen and Tylenol with minimal relief of symptoms. No shoulder pain. - History of Current Complaint Chief Complaint: UCUpperExtremity Stated Complaint: WRIST,ELBOW PAIN Time Seen by Provider: 10/13/19 18:03 Hx Last Menstrual Period: last month Pain Intensity: 10 - Allergies/Home Medications Allergies/Adverse Reactions: Allergies Allergy/AdvReac Type Severity Reaction Status Date / Time liraglutide [From Victoza] Allergy Unknown Verified 10/13/19 17:56 Reaction Details nitroglycerin Allergy Unknown Verified 10/13/19 17:56 Reaction Details polyethylene glycol 3350 Allergy Unknown Verified 10/13/19 17:56 [From Miralax] Reaction Details Home Medications: Home Medications Acetaminophen [Tylenol Extra Strength] 1,000 mg PO ONCE PRN 10/13/19 [History Confirmed 10/13/19] Ibuprofen 1 tab PO ONCE PRN 10/13/19 [History Confirmed 10/13/19] Simvastatin 1 tab PO DAILY 10/13/19 [History Confirmed 10/13/19] PMH/Surg Hx/FS Hx/Imm Hx Previously Healthy: Yes Endocrine History: Diabetes, Dyslipidemia Cardiovascular History: Hypertension, Congestive Heart Failure Respiratory History: COPD - Surgical History Surgical History: Yes Surgery Procedure, Year, and Place: 2009 Mitral Valve Repair. April 2009 Appendectomy. Collapsed lung - coma 16 days, tracheotomy. TUBAL - Family History Known Family History: Positive: Hypertension, Diabetes - Social History Alcohol Use: None Substance Use Type: None Smoking Status (MU): Former Smoker When Did the Patient Quit Smoking/Using Tobacco: 8 YRS Household Exposure Type: Cigarettes - Immunization History Most Recent Influenza Vaccination: FALL 2015 Most Recent Tetanus Shot: sep 2012 Most Recent Pneumonia Vaccination: 2008 Review of Systems All Other Systems Reviewed And Are Negative: Yes Constitutional: Positive: Negative Skin: Positive: Negative Eyes: Positive: Negative ENT: Positive: Negative Respiratory: Positive: Negative Cardiovascular: Positive: Negative Gastrointestinal: Positive: Negative Motor: Positive: Negative Neurovascular: Positive: Negative Musculoskeletal: Positive: Other: - SEE HPI Neurological: Positive: Negative Psychological: Positive: Negative Is Patient Immunocompromised?: No Physical Exam Triage Information Reviewed: Yes Appearance: Well-Appearing, Well-Nourished, Pain Distress - MILD WITH RT ARM ROM AND EXAM Vital Signs: Initial Vital Signs Temp 99.4 F 10/13/19 17:51 Pulse 96 10/13/19 17:51 Resp 18 10/13/19 17:51 BP 145/75 10/13/19 17:51 Pulse Ox 95 10/13/19 17:51 Vital Signs Reviewed: Yes Eye Exam: Normal Eyes: Positive: Conjunctiva Clear Neck: Positive: Supple Respiratory: Positive: No respiratory distress Musculoskeletal: Positive: Other: - Right elbow is diffusely tender to palpation although it's more tender in the medial aspect. Wrist and hand are also diffusely tender to palpation. Fingers are nontender to palpation. Patient is able to move her fingers wrist elbows and shoulder. No pain with range of motion or palpation of the shoulder but there is pain with range of motion primarily of the elbow. Normal sensation and normal radial pulse. Normal capillary refill. Neurological: Positive: Alert Psychological: Positive: Age Appropriate Behavior Skin Exam: Normal Upper Extremity Course/Dx - Course Course Of Treatment: I discussed the x-rays with the patient and her . I do not see any fractures. Final radiologist reading is pending. Patient was placed in a sling and an Boogie wrap. Clinic by nursing patient neurovascular intact after placement. Did discuss with her the need for taking her arm out of the sling and doing range of motion to avoid frozen shoulder decreased range of motion of the elbow. Patient reports that ibuprofen and Tylenol have not been helping so I wrote a prescription for #10 [place]. Also patient can use ice. Follow-up with orthopedics if the radiologist sees fracture or if the patient's not completely improved. - Differential Dx/Diagnosis Provider Diagnosis: Right elbow pain, Right forearm pain, Right wrist pain, Right hand pain Discharge ED - Sign-Out/Discharge Documenting (check all that apply): Patient Departure All imaging exams completed and their final reports reviewed: No - Discharge Plan Condition: Stable Disposition: HOME Prescriptions: HYDROcodone/ACETAMIN 5-325 MG* [[place] 5-325 TAB*] 1 tab PO Q6H PRN #10 tab MDD 4 PRN Reason: Pain - Moderate Patient Education Materials: Wrist Injury (ED), Elbow Sprain (ED), Hand Sprain (ED) Referrals: Arturo Baker MD [Primary Care Provider] - Zac Castro MD [Medical Doctor] - Additional Instructions: FOLLOW UP WITH ORTHOPEDICS IF NOT COMPLETELY IMPROVED. Take her arm out of sling multiple times a day and Perform range of motion exercises to avoid frozen shoulder and elbow. GET REEVALUATED SOONER IF NOT IMPROVED OR WORSE OR ANY QUESTIONS OR CONCERNS. THE RADIOLOGIST READING FOR YOUR X-RAY WILL BE DONE TOMORROW. IF THERE IS ANY CHANGE IN THE X-RAY, WE WILL CALL YOU WITH THE FINAL RESULTS. IF THE RADIOLOGIST SEES A FRACTURE, FOLLOW UP WITH ORTHOPEDICS. - Billing Disposition and Condition Condition: STABLE Disposition: Home
--- NOTE | 2019-10-14 11:09 | UC ---
- Progress Note Progress Note: Radiology reports reviewed. No evidence for fracture. No change in management. Course/Dx - Diagnoses Provider Diagnoses: Right elbow pain, Right forearm pain, Right wrist pain, Right hand pain Discharge ED - Sign-Out/Discharge Documenting (check all that apply): Post-Discharge Follow Up All imaging exams completed and their final reports reviewed: Yes - Discharge Plan Condition: Stable Disposition: HOME Prescriptions: HYDROcodone/ACETAMIN 5-325 MG* [[place] 5-325 TAB*] 1 tab PO Q6H PRN #10 tab MDD 4 PRN Reason: Pain - Moderate Patient Education Materials: Wrist Injury (ED), Elbow Sprain (ED), Hand Sprain (ED) Referrals: Arturo Baker MD [Primary Care Provider] - Zac Castro MD [Medical Doctor] - Additional Instructions: FOLLOW UP WITH ORTHOPEDICS IF NOT COMPLETELY IMPROVED. Take her arm out of sling multiple times a day and Perform range of motion exercises to avoid frozen shoulder and elbow. GET REEVALUATED SOONER IF NOT IMPROVED OR WORSE OR ANY QUESTIONS OR CONCERNS. THE RADIOLOGIST READING FOR YOUR X-RAY WILL BE DONE TOMORROW. IF THERE IS ANY CHANGE IN THE X-RAY, WE WILL CALL YOU WITH THE FINAL RESULTS. IF THE RADIOLOGIST SEES A FRACTURE, FOLLOW UP WITH ORTHOPEDICS. - Billing Disposition and Condition Condition: STABLE Disposition: Home
== END 2019-10-13 19:14 | disposition home or self-care (01) ==
LOC: UCEAST 17:18
DX: M25.521 Pain in right elbow (principal); M25.531 Pain in right wrist; M25.541 Pain in joints of right hand; M79.631 Pain in right forearm; E11.9 Type 2 diabetes mellitus without complications; E78.5 Hyperlipidemia, unspecified; I11.0 Hypertensive heart disease with heart failure; J44.9 Chronic obstructive pulmonary disease, unspecified; Z88.8 Allergy status to other drugs, medicaments and biological substances; Z79.899 Other long term (current) drug therapy; Z87.891 Personal history of nicotine dependence
CPT/HCPCS: 99212; G0463